=== PATIENT | female | born 1945 ===

== ENCOUNTER → 2017-11-07 | Outpatient (CLI) | payer MEDICARE | END | disposition home or self-care (01) | LOC: LAB SHORT 17:30 → LAB 17:30 | DX: L60.2 Onychogryphosis (principal); B35.1 Tinea unguium | CPT/HCPCS: 88305; 88312 ==

== ENCOUNTER → 2018-06-26 | Outpatient (CLI) | payer MEDICARE, OTHER | END | disposition home or self-care (01) | LOC: LAB SHORT 15:43 → PLD 15:43 | DX: D22.5 Melanocytic nevi of trunk (principal) | CPT/HCPCS: 88305 ==

== ENCOUNTER → 2018-07-02 | Outpatient (CLI) | payer MEDICARE, OTHER | END | disposition home or self-care (01) | LOC: LAB SHORT 13:49 → PLD 13:49 | DX: D22.5 Melanocytic nevi of trunk (principal) | CPT/HCPCS: 88305 ==

== ENCOUNTER → 2019-07-03 | Outpatient (CLI) | payer MEDICARE, OTHER | END | disposition home or self-care (01) | LOC: PLD 15:40 → LAB SHORT 15:40 | DX: D22.5 Melanocytic nevi of trunk (principal) | CPT/HCPCS: 88305 ==

== ENCOUNTER 2021-07-22 08:05 | Day surgery (SDC) | payer MEDICARE, OTHER ==
[~2021-07-22] VITALS: Ht 154.9 cm; Wt 48.5 kg
--- NOTE | 2021-07-22 09:09 | NUR ---
07/22/21 0909 Kurt Khoury 0850, DIDI 0851. R EYE BY [facility].
== END 2021-07-22 10:35 | disposition home or self-care (01) ==
LOC: ORSCSDS 08:05
PROVIDERS: Ophthalmology
PROC: 08RJ3JZ Replacement of Right Lens with Synthetic Substitute, Percutaneous Approach (ICD-10-PCS; principal; 2021-07-22 09:30)
DX: H25.11 Age-related nuclear cataract, right eye (principal); I10 Essential (primary) hypertension
CPT/HCPCS: J2001; J2250; J3010; J3301; J7040; V2632

== ENCOUNTER 2022-07-07 08:09 | Day surgery (SDC) | payer MEDICARE, OTHER ==
[~2022-07-07] VITALS: Ht 157.5 cm; Wt 49.7 kg
--- NOTE | 2022-07-07 09:04 | NUR ---
07/07/22 0904 Kya Hobson AT 0858 PLEDGET AT 0907
[2022-07-07 10:20] VITALS: BP 130/73
== END 2022-07-07 10:41 | disposition home or self-care (01) ==
LOC: ORSCSDS 08:09
PROVIDERS: Ophthalmology
PROC: 08RK3JZ Replacement of Left Lens with Synthetic Substitute, Percutaneous Approach (ICD-10-PCS; principal; 2022-07-07 09:30)
DX: H25.13 Age-related nuclear cataract, bilateral (principal); H52.202 Unspecified astigmatism, left eye
CPT/HCPCS: A9270; J2250; J3010; J3301; J7040; V2632

== ENCOUNTER 2022-07-22 13:42 | Day surgery (SDC) | payer MEDICARE, OTHER ==
[~2022-07-22] VITALS: Ht 157.5 cm; Wt 48.2 kg
[2022-07-22 16:02] VITALS: BP 144/80
== END 2022-07-22 15:55 | disposition home or self-care (01) ==
LOC: ORSCSDS 13:42
PROVIDERS: Student in an Organized Health Care Education/Training Program
PROC: 0DBM8ZX Excision of Descending Colon, Via Natural or Artificial Opening Endoscopic, Diagnostic (ICD-10-PCS; principal; 2022-07-22 15:00)
PROC: 0DBN8ZX Excision of Sigmoid Colon, Via Natural or Artificial Opening Endoscopic, Diagnostic (ICD-10-PCS; principal; 2022-07-22 15:00)
PROC: 0DBH8ZX Excision of Cecum, Via Natural or Artificial Opening Endoscopic, Diagnostic (ICD-10-PCS; principal; 2022-07-22 15:00)
PROC: 0DBL8ZX Excision of Transverse Colon, Via Natural or Artificial Opening Endoscopic, Diagnostic (ICD-10-PCS; principal; 2022-07-22 15:00)
DX: Z12.11 Encounter for screening for malignant neoplasm of colon (principal); Z86.010 Personal history of colon polyps; D12.3 Benign neoplasm of transverse colon; D12.0 Benign neoplasm of cecum; K63.5 Polyp of colon; K57.30 Diverticulosis of large intestine without perforation or abscess without bleeding
CPT/HCPCS: J0461; J2001; J2405; J2704; J7120; Q9968